=== PATIENT | male | born 1975 | race Caucasian/White ===

== ENCOUNTER 2021-03-23 09:19 | Outpatient (CLI) | payer OTHER ==
[2021-03-23 17:43] LABS: SARS-CoV-2 PCR by NAA Not Detected (NotDetected)
== END 2021-03-23 09:20 | disposition home or self-care (01) ==
LOC: CSHLAB 09:19
PROVIDERS: ATTEND Specialist
DX: Z20.822 Contact with and (suspected) exposure to COVID-19 (principal)
CPT/HCPCS: U0003; U0005

== ENCOUNTER 2021-03-28 06:54 | Day surgery (SDC) | payer OTHER ==
[2021-03-28 07:36] VITALS: BMI 27.3
[2021-03-28 07:56] VITALS: BP 141/95; TEMP 97.6
[2021-03-28] MEDS ORDERED: Lidocaine 1% (PF) 30 ML VIAL ONE (08:00)
[2021-03-28] MEDS ORDERED: PROPOFOL 200 MG/20 ML VIAL ONE (08:00)
[2021-03-29] MEDS ORDERED: FLU VACC QS2021-22(6MOS UP)/PF 60 MCG/0.5 ML SYRINGE IM ONE (08:00)
== END 2021-03-28 10:00 | disposition home or self-care (01) ==
LOC: CSHSDC 06:54
PROVIDERS: ATTEND Specialist
DX: Q21.1 Atrial septal defect (principal); Z02.89 Encounter for other administrative examinations
CPT/HCPCS: 93005; 93010; 93312; J2001; J2704